=== PATIENT | female | born 1970 | race Caucasian/White ===

== ENCOUNTER 2021-05-25 16:08 | Emergency (ER) | payer MEDICAID ==
[2021-05-25] MEDS ORDERED: TORAdol 30 mg Injection IM ONE (16:30)
[2021-05-25] MEDS ORDERED: TORAdol 30 mg Injection ONE (16:32)
--- NOTE | 2021-05-25 16:35 | ERPHSYRPT ---
- History of Present Illness Source: patient Patient Subjective Stated Complaint: L knee pain Triage Nursing Assessment: pt to ED c/o L knee pain, states she tripped and twisted knee last night. now has tightness pain on lateral side of knee that radiates down to salguero and foot. rates 7/10 now. hopped on one leg to bed from and reports extreme pain with any weight bearing. Physician History: 50 yo wf cc of L knee pain after twisting it yesterday at home. Pt denies other/previous injuries. Method of Injury: twisted Occurred: yesterday Quality: constant Severity of Pain-Max: moderate Severity of Pain-Current: moderate Lower Extremities Pain: knee: left Modifying Factors: Improves With: movement Associated Symptoms: unable to bear weight Allergies/Adverse Reactions: Penicillins Allergy (Intermediate, Verified 05/25/21 16:20) Hives Home Medications: Escitalopram Oxalate [Lexapro] 5 mg PO DAILY 05/25/21 [History] Iron 18 mg PO DAILY 05/25/21 [History] Levothyroxine Sodium 150 Mcg [Synthroid 150 Mcg] 150 mcg PO DAILY 05/25/21 [History] Lisinopril/Hydrochlorothiazide [Lisinopril-Hctz 20-12.5 mg Tab] 1 each PO DAILY 05/25/21 [History] Magnesium 30 mg PO DAILY 05/25/21 [History] Meclizine HCl 25 mg [Antivert 25 mg] 25 mg PO DAILY PRN PRN 05/25/21 [History] Potassium Gluconate [Potassium] 99 mg PO DAILY 05/25/21 [History] Hx Tetanus, Diphtheria Vaccination/Date Given: Yes Hx Influenza Vaccination/Date Given: Yes Hx Pneumococcal Vaccination/Date Given: No Immunizations Up to Date: Yes Travel Risk - International Travel Have you traveled outside of the country in past 3 weeks: No - Coronavirus Screening Are you exhibiting any of the following symptoms?: No Close contact with a COVID-19 positive Pt in past 14-21 Days: No - Vaccine Status Have you recieved a Covid-19 vaccination: Yes 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[employer] - Review of Systems Constitutional: No Symptoms Eyes: No Symptoms Ears, Nose, & Throat: No Symptoms Respiratory: No Symptoms Cardiac: No Symptoms Abdominal/Gastrointestinal: No Symptoms Genitourinary Symptoms: No Symptoms Skin: No Symptoms Neurological: No Symptoms Psychological: No Symptoms Endocrine: No Symptoms Hematologic/Lymphatic: No Symptoms Immunological/Allergic: No Symptoms - Past Medical History Pertinent Past Medical History: Yes Cardiac History: Hypertension Endocrine Medical History: Hypothyroidism Psycho-Social History: Anxiety, Depression Other Medical History: iron defeciency - Past Surgical History Past Surgical History: Yes Gastrointestinal: Cholecystectomy - Social History Smoking Status: Never smoker Exposure to second hand smoke: No Drug Use: none Patient Lives Alone: No Significant Family History: no pertinent family hx - Female History Hx Now: No (hysterectomy 2001) - Nursing Vital Signs Nursing Vital Signs: Initial Vital Signs Temperature 99.0 F 05/25/21 16:13 Pulse Rate 78 05/25/21 16:13 Respiratory Rate 18 05/25/21 16:13 Blood Pressure 166/99 05/25/21 16:13 O2 Sat by Pulse Oximetry 98 05/25/21 16:13 Pain Scale Pain Intensity 6 Hypertensive - Physical Exam General Appearance: no apparent distress Eyes, Ears, Nose, Throat Exam: normal ENT inspection Neck Exam: normal inspection, non-tender Cardiovascular/Respiratory Exam: normal breath sounds, regular rate/rhythm, heart sounds normal, no respiratory distress Gastrointestinal/Abdominal Exam: non-tender, soft Back Exam: normal inspection Hips Exam: bilateral: non-tender, normal inspection, normal range of motion Legs Exam: bilateral leg: non-tender, normal inspection, normal range of motion, no evidence of injury Knees Exam: left knee: other (L knee TTP laterally>medially/No instability/Good pedial pulse, distal sensation, and capillary return) Ankle Exam: bilateral ankle: non-tender, normal inspection, normal range of motion, no evidence of injury Neuro/Tendon Exam: normal sensation, normal motor functions, normal tendon functions, responds to pain Mental Status Exam: alert, oriented x 3, cooperative Skin Exam: normal color, warm, dry, No rash SpO2 Interpretation: normal SpO2: 98 O2 Delivery: Room Air - Radiology Exams Knee X-ray Interpretation: Discussed w/ radiologist (L knee small effusion, otherwise neg) Ordered Tests: Active Orders 24 hr Category Date Time Status Splint STAT Care 05/25/21 17:01 Completed KNEE (3 VIEWS) Stat Exams 05/25/21 16:46 Completed Medication Summary Discontinued Medications Generic Name Dose Route Start Last Admin Trade Name Freq PRN Reason Stop Dose Admin Ketorolac Tromethamine 60 mg 05/25/21 16:30 05/25/21 16:35 Toradol 30 Mg Injection IM 05/25/21 16:31 60 mg STAT ONE Administration Ketorolac Tromethamine Confirm 05/25/21 16:32 Toradol 30 Mg Injection Administered 05/25/21 16:33 Dose 60 mg .ROUTE .STK-MED ONE - Progress Progress: improved Progress Note: 05/25/21 19:30 Knee immobilizer placed per nursing LLE/NVI Crutches/teaching per nursing 05/25/21 19:31 60mg IM Toradol Counseled pt/family regarding: diagnosis, need for follow-up, rad results - Departure Departure Disposition: Home Clinical Impression: Strain of knee Condition: Stable Critical Care Time: No Referrals: DOCTOR,NO FAMILY [Primary Care Provider] - [facility] - JOSE ZAYAS TECHNICAL COMMUNICATOR [NON-STAFF PHY W/O PRIVILEGES] - Instructions: Knee Sprain (DC) Additional Instructions: No weight bearing Use crutches Follow up in orthopedic clinic Toradol as needed for pain Prescriptions: Ketorolac Tromethamine [Toradol] 10 mg PO TID PRN #14 tablet PRN Reason: Pain
--- NOTE | 2021-05-25 16:54 | XRAY ---
Indication: Pain following hyperextension. Comparison: None 3 view left knee demonstrates small nonspecific effusion. No other bony, articular, or soft tissue abnormalities.
[2021-05-25 17:22] VITALS: BP 157/85; PULSE 72
[2021-05-25 19:32] VITALS: O2SAT 98
== END 2021-05-25 17:33 | disposition home or self-care (01) ==
LOC: ED 16:08
DX: S83.92XA Sprain of unspecified site of left knee, initial encounter (principal); M25.562 Pain in left knee; X50.1XXA Overexertion from prolonged static or awkward postures, initial encounter; Y93.01 Activity, walking, marching and hiking; Y92.89 Other specified places as the place of occurrence of the external cause
CPT/HCPCS: 73562; 96372; 99284; J1885; L1830

== ENCOUNTER 2021-07-03 18:12 | Emergency (ER) | payer MEDICAID, OTHER ==
[2021-07-03] MEDS ORDERED: ARZOL Silver Nitrate Applicator TP ONE (18:28)
--- NOTE | 2021-07-03 18:43 | ERPHSYRPT ---
- History of Present Illness Time Seen by Provider: 07/03/21 18:16 Source: patient Exam Limitations: no limitations Patient Subjective Stated Complaint: Patient states she as lupillo vegetables this afternoon 1300, and cut right middle finger. Wrapped guaze around finger a nd cannot get it to stop bleeding after shower this evening. Triage Nursing Assessment: R middle finger laceration, active bleeding at this time. Sensation movement WNL Physician History: 50 years old female presented in the ER after she accidentally peeled off skin right hand third digit distal interphalangeal joint area dorsally with bleeding for almost 5 hours off and on with no hemostasis despite applying pressure. Mild pain with movements. No tingling numbness in the pulp. Up-to-date with tetanus. Occurred: hours ago (5) Method of Injury: incised Quality: burning Severity of Pain-Max: mild Severity of Pain-Current: mild Extremities Pain Location: 3rd finger: right Modifying Factors: Improves With: immobilization. Worsens With: movement Associated Symptoms: none Allergies/Adverse Reactions: Penicillins Allergy (Intermediate, Verified 07/03/21 18:41) Hives Home Medications: Escitalopram Oxalate [Lexapro] 5 mg PO DAILY 05/25/21 [History] Iron 18 mg PO DAILY 05/25/21 [History] Levothyroxine Sodium 150 Mcg [Synthroid 150 Mcg] 150 mcg PO DAILY 05/25/21 [History] Lisinopril/Hydrochlorothiazide [Lisinopril-Hctz 20-12.5 mg Tab] 1 each PO DAILY 05/25/21 [History] Magnesium 30 mg PO DAILY 05/25/21 [History] Meclizine HCl 25 mg [Antivert 25 mg] 25 mg PO DAILY PRN PRN 05/25/21 [History] Potassium Gluconate [Potassium] 99 mg PO DAILY 05/25/21 [History] Hx Tetanus, Diphtheria Vaccination/Date Given: Yes (2 years) Hx Influenza Vaccination/Date Given: Yes Hx Pneumococcal Vaccination/Date Given: No Immunizations Up to Date: Yes Travel Risk - International Travel Have you traveled outside of the country in past 3 weeks: No - Coronavirus Screening Are you exhibiting any of the following symptoms?: No Close contact with a COVID-19 positive Pt in past 14-21 Days: No - Vaccine Status Have you recieved a Covid-19 vaccination: Yes 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 Pedroza for ortho - Past Surgical History Past Surgical History: Yes Gastrointestinal: Cholecystectomy - Social History Smoking Status: Never smoker Exposure to second hand smoke: No Drug Use: none Patient Lives Alone: No Significant Family History: no pertinent family hx - Female History Hx Now: No (hysterectomy) - Nursing Vital Signs Nursing Vital Signs: Initial Vital Signs Pulse Rate 84 07/03/21 18:52 Respiratory Rate 18 07/03/21 18:52 Blood Pressure 147/85 07/03/21 18:52 O2 Sat by Pulse Oximetry 97 07/03/21 18:52 Pain Scale Pain Intensity 0 - Physical Exam General Appearance: no apparent distress, alert Neck Exam: normal inspection, full range of motion Cardiovascular/Respiratory Exam: normal breath sounds, regular rate/rhythm Hand Exam: soft tissue tenderness (Right third digit distal interphalangeal joint dorsal aspect 1 cm chunk of skin missing with slow oozing. Intact range of motion of distal interphalangeal joint. Capillary refill less than 3 seconds.) Neuro/Tendon Exam: normal sensation, normal motor functions, normal tendon functions Mental Status Exam: alert, oriented x 3 Skin Exam: normal color SpO2 Interpretation: normal SpO2: 95 O2 Delivery: Room Air Ordered Tests: Medication Summary Discontinued Medications Generic Name Dose Route Start Last Admin Trade Name Felipe PRN Reason Stop Dose Admin Silver Nitrate Confirm 07/03/21 18:28 Arzol Silver Nitrate Applicator Administered 07/03/21 18:29 Dose 2 pkt TP .STK-MED ONE - Progress Progress: improved Progress Note: 07/03/21 18:41 She has a superficial skin junk gone. Cannot be stitched together. I have applied silver nitrate cauterization and bleeding is controlled. Bacitracin and splint applied to avoid rebleed. Discussed signs symptoms of worsening needing return to ER which she seems understanding. Up-to-date with tetanus. Counseled pt/family regarding: diagnosis, need for follow-up - Departure Departure Disposition: Home Clinical Impression: Finger laceration Qualifiers: Encounter type: initial encounter Finger: middle finger Damage to nail status: without damage Foreign body presence: without foreign body Laterality: right Qualified Code(s): S61.212A - Laceration without foreign body of right middle finger without damage to nail, initial encounter Condition: Stable Critical Care Time: No Referrals: VISH RANDLE DO [Primary Care Provider] - Instructions: Wound Care (DC) Additional Instructions: Take Tylenol as needed for pain. Keep it clean. Use splint for couple of days. Apply firm pressure for 5 minutes if rebleeds. Return to ER for worsening bleeding.
[2021-07-03 18:53] VITALS: BP 147/85; PULSE 84
[2021-07-05 23:35] VITALS: O2SAT 95
== END 2021-07-03 18:53 | disposition home or self-care (01) ==
LOC: ED 18:12
DX: S61.212A Laceration without foreign body of right middle finger without damage to nail, initial encounter (principal); W45.8XXA Other foreign body or object entering through skin, initial encounter; Y93.G1 Activity, food preparation and clean up; Y92.9 Unspecified place or not applicable
CPT/HCPCS: 99283; A9270-GY

== ENCOUNTER 2021-09-21 16:50 | Emergency (ER) | payer OTHER ==
[2021-09-21 17:21] LABS: Appearance CLOUDY (CLEAR); Bacteria RARE /HPF (NEGATIVE); Bilirubin NEGATIVE (NEGATIVE); Blood SMALL Ery/ul (0-5); Epithelial Cells FEW /HPF (FEW); Glucose NEGATIVE (NEGATIVE); Ketones NEGATIVE (NEGATIVE); Leukocyte Esterase LARGE (NEGATIVE); Mucus SLIGHT /HPF (NEGATIVE); Nitrite NEGATIVE (NEGATIVE); Protein,Urine Dip 30 (Negative); RBC 0-2 /HPF (0-2); Specific Gravity 1.015 (1.005-1.025); Urobilinogen NEGATIVE mg/dL (0-1); WBC 0-2 /HPF (0-5)
--- NOTE | 2021-09-21 17:27 | XRAY ---
Indication: Abdomen pain, nausea, vomiting, diarrhea 6 days. Multiple contiguous axial images obtained through the abdomen and pelvis without contrast. Comparison: None Lung bases are clear. Heart not enlarged. Noncontrasted stomach and bowel loops appear nonobstructed. Normal air-filled appendix. Previous cholecystectomy and hysterectomy. No free fluid/air. Mild fatty hepatomegaly measuring 19.5 cm. Remaining liver, pancreas, spleen, adrenal glands, kidneys, ureters, bladder, and aorta are unremarkable for noncontrast exam. Osseous structures intact with minimal/mild degenerative changes throughout the spine greatest at the lumbosacral junction. Impression: 1. Mild fatty hepatomegaly. 2. Remaining CT abdomen/pelvis without contrast exam is negative.
[2021-09-21 18:25] LABS: BASOPHIL % 0.4 % (0.0-0.4); Basophil (Absolute #) 0.02 (0-0.4); Eosinophil % 1.9 % (0.00-5.0); Hematocrit 41.4 % (35-47); Hemoglobin 13.4 gm/dl (12.0-16.0); Lymphocyte (Absolute #) 1.46 (1.0-4.6); Lymphocytes % 27.1 % (24.0-44.0); Mean Corpuscular Hemoglobin 29.5 pg (26-32); Mean Corpuscular Hgb Concent. 32.4 g/dl (32-36); Mean Platelet Volume 11.6 fl (7.5-11.0); Monocytes % 9.3 % (0.0-12.0); Neutrophil % 61.3 % (36.0-66.0); Platelet Count 185 K/mm3 (150-450); Red Blood Count 4.55 M/mm3 (4.1-5.4); Red Cell Distribution Width 12.2 % (11.5-14.0); White Blood Count 5.4 K/mm3 (4.0-10.5)
[2021-09-21 18:35] LABS: ALBUMIN 4.2 g/dL (3.5-5.0); ALKALINE PHOSPHATASE 70 U/L (38-126); AMYLASE 44 U/L (30-110); ANION GAP 11.8 MEQ/L (5-15); BLOOD UREA NITROGEN 16 mg/dL (7-17); CHLORIDE 99 mmol/L (98-107); Calcium 9.5 mg/dL (8.4-10.2); Carbon Dioxide 30 mmol/L (22-30); Creatinine 1 0.87 mg/dL (0.52-1.04); EST GLOMERULAR FILTRATION RATE > 60.0 ML/MIN; Glucose 120 mg/dL (74-106); LIPASE 79 U/L (23-300); Potassium 3.6 mmol/L (3.5-5.1); SGOT/AST 23 U/L (14-36); SGPT/ALT 21 U/L (0-35); SODIUM 137 mmol/L (137-145); Total Protein 6.9 g/dL (6.3-8.2)
--- NOTE | 2021-09-21 18:35 | ERPHSYRPT ---
- History of Present Illness Time Seen by Provider: 09/21/21 17:20 Historian: patient Exam Limitations: no limitations Patient Subjective Stated Complaint: Pt states "I had misiscus surgery on my left knee on sunday and for the past 3 days I have been vomiting and unable to keep anything down. It also aranda when I urinate." Triage Nursing Assessment: Pt presented alert and oriented X3, skin pwd Pt ambulates with a limp. Pt has two bandaids on her left knee, no swelling or deformity noted. no fever, no apparent respiratory distress. Physician History: This is a 51-year-old obese white female who underwent a left knee meniscal repair 5 days ago. Approximately 3 days ago patient was having vomiting symptoms and diarrheal stools. She thought maybe it was the medication of meloxicam and tramadol that was given to her. She therefore stopped those medications. Her symptoms of vomiting and diarrhea persisted. She also has some dysuria. Patient has a history of hypothyroidism and hypertension. She also has a history of anxiety and depression. She also has iron deficiency. Patient denies chest pain. She denies abdominal pain. She denies shortness of breath. Timing/Duration: day(s) (3) Quality: cramping, other (Dysuria) Modifying Factors: Improves With: vomiting, other (Vomiting and diarrhea) Associated Symptoms: diarrhea, loss of appetite, nausea, vomiting, other (Dysuria) Previous symptoms: no prior history Allergies/Adverse Reactions: Penicillins Allergy (Intermediate, Verified 07/03/21 18:41) Hives Home Medications: Iron 18 mg PO DAILY 05/25/21 [History] Levothyroxine Sodium 150 Mcg [Synthroid 150 Mcg] 150 mcg PO DAILY 05/25/21 [History] Lisinopril/Hydrochlorothiazide [Lisinopril-Hctz 20-12.5 mg Tab] 1 each PO DAILY 05/25/21 [History] Magnesium 30 mg PO DAILY 05/25/21 [History] Meclizine HCl 25 mg [Antivert 25 mg] 25 mg PO DAILY PRN PRN 05/25/21 [History] Potassium Gluconate [Potassium] 99 mg PO DAILY 05/25/21 [History] Hx Tetanus, Diphtheria Vaccination/Date Given: Yes Hx Influenza Vaccination/Date Given: Yes Hx Pneumococcal Vaccination/Date Given: No Immunizations Up to Date: Yes Travel Risk - International Travel Have you traveled outside of the country in past 3 weeks: No - Coronavirus Screening Are you exhibiting any of the following symptoms?: Yes Symptoms: Vomiting/Diarrhea Close contact with a COVID-19 positive Pt in past 14-21 Days: No - Vaccine Status Have you recieved a Covid-19 vaccination: Yes 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 - Review of Systems Constitutional: Weakness Eyes: No Symptoms Ears, Nose, & Throat: No Symptoms Respiratory: No Symptoms Cardiac: No Symptoms Abdominal/Gastrointestinal: Abdominal Pain (Mild cramping generalized), Nausea, Vomiting, Diarrhea, Appetite Changes Genitourinary Symptoms: Dysuria Musculoskeletal: No Symptoms Skin: No Symptoms Neurological: No Symptoms Psychological: No Symptoms Endocrine: No Symptoms Hematologic/Lymphatic: No Symptoms Immunological/Allergic: No Symptoms All Other Systems: Reviewed and Negative - Past Medical History Pertinent Past Medical History: Yes Neurological History: Migraines Cardiac History: Hypertension Respiratory History: Other Endocrine Medical History: Hypothyroidism Musculoskeletal History: Osteoarthritis Psycho-Social History: Anxiety, Depression Other Medical History: PT HAS SHOOTING PAIN INTO THE L LATERAL CALF, SHE NOTES PAIN BEHIND THE KNEE. DENIES ANY DROP FOOT. SOB ON EXERTION. - Past Surgical History Past Surgical History: Yes Gastrointestinal: Cholecystectomy - Social History Smoking Status: Never smoker Exposure to second hand smoke: Yes Drug Use: none Patient Lives Alone: No Significant Family History: no pertinent family hx - Female History Hx Last Menstrual Period: 2001 - Nursing Vital Signs Nursing Vital Signs: Initial Vital Signs Temperature 97.6 F 09/21/21 17:00 Pulse Rate 99 H 09/21/21 17:00 Respiratory Rate 20 09/21/21 17:00 Blood Pressure 146/104 09/21/21 17:00 O2 Sat by Pulse Oximetry 97 09/21/21 17:00 Pain Scale Pain Intensity 4 - Physical Exam General Appearance: mild distress, alert, anxiety, obese Eye Exam: PERRL/EOMI, eyes nml inspection Ears, Nose, Throat Exam: normal ENT inspection, moist mucous membranes Neck Exam: normal inspection, non-tender, supple, full range of motion Respiratory Exam: normal breath sounds, lungs clear, airway intact, No chest tenderness, No respiratory distress Cardiovascular Exam: regular rate/rhythm, normal heart sounds, normal peripheral pulses Gastrointestinal/Abdomen Exam: soft, normal bowel sounds, tenderness (Mild d iffuse with palpation), No rebound Pelvic Exam: not done Rectal Exam: not done Back Exam: normal inspection, normal range of motion, No CVA tenderness, No vertebral tenderness Extremity Exam: normal range of motion, pelvis stable, other (Postoperative changes left anterior knee. No evidence of infection. Incision lines are clean dry and intact.) Neurologic Exam: alert, oriented x 3, cooperative, chronic disease manager II-XII nml as tested, normal mood/affect, nml cerebellar function, nml station & gait, sensation nml Skin Exam: normal color, warm, dry Lymphatic Exam: No adenopathy SpO2 Interpretation: normal SpO2: 97 O2 Delivery: Room Air - Course Nursing assessment & vital signs reviewed: Yes Ordered Tests: Active Orders 24 hr Category Date Time Status IV Insertion STAT Care 09/21/21 17:00 Active ABDOMEN AND PELVIS W/0 CONTRAS [CT] Stat Exams 09/21/21 17:01 Completed AMYLASE Stat Lab 09/21/21 18:17 Completed CBC W DIFF Stat Lab 09/21/21 18:17 Completed CMP Stat Lab 09/21/21 18:17 Completed CULTURE,URINE Stat Lab 09/21/21 17:00 Received LIPASE Stat Lab 09/21/21 18:17 Completed Lactic Acid Stat Lab 09/21/21 18:06 Completed UA W/RFX UR CULTURE Stat Lab 09/21/21 17:00 Completed Medication Summary Generic Name Dose Route Start Last Admin Trade Name Freq PRN Reason Stop Dose Admin Levofloxacin/Dextrose 500 mg in 100 mls @ 100 mls/hr 09/21/21 18:36 09/21/21 18:47 Levofloxacin 500mg/100ml D5w IV 09/21/21 19:35 100 mls/hr STAT STA 100 mls/hr Administration Metronidazole 500 mg 09/21/21 19:11 Metronidazole 500 Mg Tablet PO 09/21/21 19:12 STAT ONE Discontinued Medications Generic Name Dose Route Start Last Admin Trade Name Freq PRN Reason Stop Dose Admin Sodium Chloride 1,000 mls @ 999 mls/hr 09/21/21 17:00 09/21/21 18:47 Sodium Chloride 0.9% 1000 Ml IV 09/21/21 18:00 999 mls/hr .Q1H1M STA Administration Sodium Chloride Confirm 09/21/21 18:46 Sodium Chloride 0.9% 1000 Ml Administered 09/21/21 18:47 Dose 1,000 mls @ ud .ROUTE .STK-MED ONE Levofloxacin/Dextrose Confirm 09/21/21 18:46 Levofloxacin 500mg/100ml D5w Administered 09/21/21 18:47 Dose 500 mg in 100 mls @ ud IV .STK-MED ONE Ondansetron HCl 4 mg 09/21/21 17:00 09/21/21 18:47 Ondansetron Hcl 4 Mg/2 Ml Vial IV 09/21/21 17:01 4 mg STAT ONE Administration Ondansetron HCl Confirm 09/21/21 18:46 Ondansetron Hcl 4 Mg/2 Ml Vial Administered 09/21/21 18:47 Dose 4 mg .ROUTE .STK-MED ONE Lab/Rad Data: Laboratory Result Diagrams 09/21/21 18:17 09/21/21 18:17 Laboratory Results 09/21/21 09/21/21 09/21/21 Range/Units 18:17 18:17 18:06 WBC 5.4 (4.0-10.5) K/mm3 RBC 4.55 (4.1-5.4) M/mm3 Hgb 13.4 (12.0-16.0) gm/dl Hct 41.4 (35-47) % MCV 91.0 (78-100) fl MCH 29.5 (26-32) pg MCHC 32.4 (32-36) g/dl RDW 12.2 (11.5-14.0) % Plt Count 185 (150-450) K/mm3 MPV 11.6 H (7.5-11.0) fl Gran % 61.3 (36.0-66.0) % Eos # (Auto) 0.10 (0-0.5) Absolute Lymphs (auto) 1.46 (1.0-4.6) Absolute Monos (auto) 0.50 (0.0-1.3) Lymphocytes % 27.1 (24.0-44.0) % Monocytes % 9.3 (0.0-12.0) % Eosinophils % 1.9 (0.00-5.0) % Basophils % 0.4 (0.0-0.4) % Absolute Granulocytes 3.30 (1.4-6.9) Basophils # 0.02 (0-0.4) Sodium 137 (137-145) mmol/L Potassium 3.6 (3.5-5.1) mmol/L Chloride 99 (98-107) mmol/L Carbon Dioxide 30 (22-30) mmol/L Anion Gap 11.8 (5-15) MEQ/L BUN 16 (7-17) mg/dL Creatinine 0.87 (0.52-1.04) mg/dL Estimated GFR > 60.0 ML/MIN Glucose 120 H (74-106) mg/dL Lactic Acid 1.2 (0.4-2.0) Calcium 9.5 (8.4-10.2) mg/dL Total Bilirubin 0.60 (0.2-1.3) mg/dL AST 23 (14-36) U/L ALT 21 (0-35) U/L Alkaline Phosphatase 70 (38-126) U/L Serum Total Protein 6.9 (6.3-8.2) g/dL Albumin 4.2 (3.5-5.0) g/dL Amylase 44 (30-110) U/L Lipase 79 (23-300) U/L Urine Color (YELLOW) Urine Appearance (CLEAR) Urine pH (5-6) Ur Specific [place] (1.005-1.025) Urine Protein (Negative) Urine Ketones (NEGATIVE) Urine Blood (0-5) Raghavendra/ul Urine Nitrite (NEGATIVE) Urine Bilirubin (NEGATIVE) Urine Urobilinogen (0-1) mg/dL Ur Leukocyte Esterase (NEGATIVE) Urine WBC (Auto) (0-5) /HPF Urine RBC (Auto) (0-2) /HPF U Epithel Cells (Auto) (FEW) /HPF Urine Bacteria (Auto) (NEGATIVE) /HPF Urine Mucus (Auto) (NEGATIVE) /HPF Urine Culture Reflexed (NO) Urine Glucose (NEGATIVE) mg/dL 09/21/21 Range/Units 17:00 WBC (4.0-10.5) K/mm3 RBC (4.1-5.4) M/mm3 Hgb (12.0-16.0) gm/dl Hct (35-47) % MCV (78-100) fl MCH (26-32) pg MCHC (32-36) g/dl RDW (11.5-14.0) % Plt Count (150-450) K/mm3 MPV (7.5-11.0) fl Gran % (36.0-66.0) % Eos # (Auto) (0-0.5) Absolute Lymphs (auto) (1.0-4.6) Absolute Monos (auto) (0.0-1.3) Lymphocytes % (24.0-44.0) % Monocytes % (0.0-12.0) % Eosinophils % (0.00-5.0) % Basophils % (0.0-0.4) % Absolute Granulocytes (1.4-6.9) Basophils # (0-0.4) Sodium (137-145) mmol/L Potassium (3.5-5.1) mmol/L Chloride (98-107) mmol/L Carbon Dioxide (22-30) mmol/L Anion Gap (5-15) MEQ/L BUN (7-17) mg/dL Creatinine (0.52-1.04) mg/dL Estimated GFR ML/MIN Glucose (74-106) mg/dL Lactic Acid (0.4-2.0) Calcium (8.4-10.2) mg/dL Total Bilirubin (0.2-1.3) mg/dL AST (14-36) U/L ALT (0-35) U/L Alkaline Phosphatase (38-126) U/L Serum Total Protein (6.3-8.2) g/dL Albumin (3.5-5.0) g/dL Amylase (30-110) U/L Lipase (23-300) U/L Urine Color YELLOW (YELLOW) Urine Appearance CLOUDY (CLEAR) Urine pH 7.0 (5-6) Ur Specific [place] 1.015 (1.005-1.025) Urine Protein 30 (Negative) Urine Ketones NEGATIVE (NEGATIVE) Urine Blood SMALL (0-5) Raghavendra/ul Urine Nitrite NEGATIVE (NEGATIVE) Urine Bilirubin NEGATIVE (NEGATIVE) Urine Urobilinogen NEGATIVE (0-1) mg/dL Ur Leukocyte Esterase LARGE (NEGATIVE) Urine WBC (Auto) 0-2 (0-5) /HPF Urine RBC (Auto) 0-2 (0-2) /HPF U Epithel Cells (Auto) FEW (FEW) /HPF Urine Bacteria (Auto) RARE (NEGATIVE) /HPF Urine Mucus (Auto) SLIGHT (NEGATIVE) /HPF Urine Culture Reflexed YES (NO) Urine Glucose NEGATIVE (NEGATIVE) mg/dL - Progress Progress: improved, pain not gone completely, re-examined Progress Note: 09/21/21 19:12 CAT scan of the abdomen pelvis shows no acute intra-abdominal or intrapelvic abnormality. Counseled pt/family regarding: lab results, diagnosis, need for follow-up, rad results - Departure Departure Disposition: Home Clinical Impression: UTI (urinary tract infection), Diarrhea Condition: Stable Critical Care Time: No Referrals: NICOLA DERAS [Primary Care Provider] - Additional Instructions: Drink plenty of fluids. Take your antibiotics as prescribed. Follow-up with your primary care physician and your orthopedic surgeon for further management. Prescriptions: Ciprofloxacin [Cipro 500 MG] 500 mg PO BID #14 tablet Metronidazole 500 mg [Flagyl 500 MG] 500 mg PO TID #21 tablet
[2021-09-21 18:44] VITALS: PULSE 86
[2021-09-21] MEDS ORDERED: Sodium Chloride 0.9% 1000 ML 1,000 ML ONE (18:46)
[2021-09-21] MEDS ORDERED: Zofran 4 MG/2 ML VIAL ONE (18:46)
[2021-09-21] MEDS ORDERED: Levofloxacin 500MG/100ML D5W 500 MG/100 ML BAG IV ONE (18:46)
[2021-09-21] MEDS: Levofloxacin 500MG/100ML D5W 500 MG/100 ML BAG IV STA (18:47)
[2021-09-21] MEDS: Zofran 4 MG/2 ML VIAL IV ONE (18:47)
[2021-09-21] MEDS: Sodium Chloride 0.9% 1000 ML 1,000 ML IV STA (18:47)
[2021-09-21 19:11] VITALS: BP 144/81
[2021-09-21 19:15] VITALS: O2SAT 97
[2021-09-21] MEDS: Flagyl 500 MG PO ONE (19:21)
[2021-09-21] MEDS ORDERED: Flagyl 500 MG ONE (19:21)
== END 2021-09-21 19:32 | disposition home or self-care (01) ==
LOC: ED 16:50
DX: N39.0 Urinary tract infection, site not specified (principal); R19.7 Diarrhea, unspecified
CPT/HCPCS: 36000; 36415; 74176; 80053; 81001; 82150; 83605; 83690; 85025; 87086; 96365; 96374; 99284; J1956; J2405; A9270-GY

== ENCOUNTER 2022-01-04 11:39 | Emergency (ER) | payer OTHER ==
--- NOTE | 2022-01-04 12:01 | ERPHSYRPT ---
- History of Present Illness Time Seen by Provider: 01/04/22 11:45 Historian: patient Exam Limitations: no limitations Patient Subjective Stated Complaint: Pt states " I was at work and I got a headache and my chest got really heavy and it went up into my neck. My chest has been hurting on and off for the past couple of days." Triage Nursing Assessment: Pt presented alert and oriented X 3, skin pwd. Pt ambulates with an upright steady gait. PT holding her chest. and squinting. Physician History: Patient is a 51-year-old female presents to emergency department for evaluation of chest pressure. Patient states she was at work developed a slight headache and felt pressure into her chest. Pressure radiates to her neck. No associated nausea vomiting or diaphoresis. No trauma. No fever. No diarrhea. No rash. Symptoms are constant. Symptoms are moderate in intensity. No specific worsening improving factors. Patient voices no other complaints concerns at this time. . Timing/Duration: today Activities at Onset: none Quality: pressure Location: substernal Chest Pain Radiation: neck Severity of Pain-Max: moderate Severity of Pain-Current: mild Modifying Factors: Improves With: nothing Associated Symptoms: denies symptoms Prior Chest Pain/Cardiac Workup: no prior chest pain Nitro Today/Relief: no nitro taken today Aspirin Treatment Today: no aspirin today Allergies/Adverse Reactions: Penicillins Allergy (Intermediate, Verified 07/03/21 18:41) Hives Home Medications: Iron 18 mg PO DAILY 05/25/21 [History] Levothyroxine Sodium 150 Mcg [Synthroid 150 Mcg] 150 mcg PO DAILY 05/25/21 [History] Lisinopril/Hydrochlorothiazide [Lisinopril-Hctz 20-12.5 mg Tab] 1 each PO DAILY 05/25/21 [History] Magnesium 30 mg PO DAILY 05/25/21 [History] Meclizine HCl 25 mg [Antivert 25 mg] 25 mg PO DAILY PRN PRN 05/25/21 [History] Potassium Gluconate [Potassium] 99 mg PO DAILY 05/25/21 [History] Vortioxetine Hydrobromide [Trintellix] 5 mg PO DAILY 01/04/22 [History] atenoloL [Atenolol] 25 mg PO DAILY 01/04/22 [History] Hx Tetanus, Diphtheria Vaccination/Date Given: Yes Hx Influenza Vaccination/Date Given: Yes Hx Pneumococcal Vaccination/Date Given: No Immunizations Up to Date: Yes Travel Risk - International Travel Have you traveled outside of the country in past 3 weeks: No - Coronavirus Screening Are you exhibiting any of the following symptoms?: Yes Symptoms: Shortness of Breath, Headaches/Body Aches/Fatigue Close contact with a COVID-19 positive Pt in past 14-21 Days: No - Vaccine Status Have you recieved a Covid-19 vaccination: Yes 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[employer] - Review of Systems Constitutional: No Symptoms, No Fever, No Chills Eyes: No Symptoms Ears, Nose, & Throat: No Symptoms Respiratory: No Symptoms, No Cough, No Dyspnea Cardiac: No Symptoms, No Chest Pain, No Edema, No Syncope Abdominal/Gastrointestinal: No Symptoms, No Abdominal Pain, No Nausea, No Vomiting, No Diarrhea Genitourinary Symptoms: No Symptoms, No Dysuria Musculoskeletal: No Symptoms, No Back Pain, No Neck Pain Skin: No Symptoms, No Rash Neurological: No Symptoms, No Dizziness, No Focal Weakness, No Sensory Changes Psychological: No Symptoms Endocrine: No Symptoms Hematologic/Lymphatic: No Symptoms Immunological/Allergic: No Symptoms All Other Systems: Reviewed and Negative - Past Medical History Pertinent Past Medical History: Yes Neurological History: Migraines Cardiac History: Hypertension Respiratory History: Other Endocrine Medical History: Hypothyroidism Musculoskeletal History: Osteoarthritis Psycho-Social History: Anxiety, Depression Other Medical History: PT HAS SHOOTING PAIN INTO THE L LATERAL CALF, SHE NOTES PAIN BEHIND THE KNEE. DENIES ANY DROP FOOT. SOB ON EXERTION. - Past Surgical History Past Surgical History: Yes Gastrointestinal: Cholecystectomy - Social History Smoking Status: Never smoker Exposure to second hand smoke: Yes Drug Use: none Patient Lives Alone: No Significant Family History: no pertinent family hx - Female History Hx Now: No - Nursing Vital Signs Nursing Vital Signs: Initial Vital Signs Temperature 98.2 F 01/04/22 11:39 Pulse Rate 82 01/04/22 11:39 Respiratory Rate 22 01/04/22 11:39 Blood Pressure 211/105 01/04/22 11:39 O2 Sat by Pulse Oximetry 98 01/04/22 11:39 Pain Scale Pain Intensity 5 - Physical Exam General Appearance: no apparent distress, alert Eye Exam: PERRL/EOMI, eyes nml inspection Ears, Nose, Throat Exam: normal ENT inspection, TMs normal, pharynx normal, moist mucous membranes Neck Exam: normal inspection, non-tender, supple, full range of motion Respiratory Exam: normal breath sounds, lungs clear, airway intact, No resp iratory distress Cardiovascular Exam: regular rate/rhythm, normal heart sounds, normal peripheral pulses Gastrointestinal/Abdomen Exam: soft, No tenderness, No mass Back Exam: normal inspection, No CVA tenderness, No vertebral tenderness Extremity Exam: normal inspection, normal range of motion Neurologic Exam: alert, oriented x 3, cooperative, normal mood/affect, sensation nml, No motor deficits Skin Exam: normal color, warm, dry Lymphatic Exam: No adenopathy SpO2 Interpretation: normal SpO2: 98 O2 Delivery: Room Air - Course Nursing assessment & vital signs reviewed: Yes EKG Interpreted by Me: RATE ([id number]), Sinus Rhythm, NORMAL AXIS, NORMAL INTERVALS - Radiology Exams Chest X-ray Interpretation: Teleradiologist Report (Portable chest demonstrates normal heart and lungs. Bony thorax intact.) Ordered Tests: Active Orders 24 hr Category Date Time Status Furniture Designer STAT Care 01/04/22 11:53 Active EKG-ER Only STAT Care 01/04/22 11:52 Active IV Insertion STAT Care 01/04/22 11:52 Active Pulse Oximetry (ED) STAT Care 01/04/22 11:52 Active CHEST 1 VIEW (PORTABLE) Stat Exams 01/04/22 11:53 Completed BLOOD CULTURE Stat Lab 01/04/22 12:12 Received CBC W DIFF Stat Lab 01/04/22 11:50 Completed CMP Stat Lab 01/04/22 11:50 Completed NT PRO BNP Stat Lab 01/04/22 11:50 Completed TROPONIN Q3H Lab 01/04/22 11:50 Completed TROPONIN Q3H Lab 01/04/22 15:10 Completed TROPONIN Q3H Lab 01/04/22 18:00 Ordered TROPONIN Q3H Lab 01/04/22 21:00 Ordered TROPONIN Q3H Lab 01/05/22 00:00 Ordered Lab/Rad Data: Laboratory Result Diagrams 01/04/22 11:50 01/04/22 11:50 Laboratory Results 01/04/22 01/04/22 01/04/22 Range/Units 15:10 11:50 11:50 WBC (4.0-10.5) K/mm3 RBC (4.1-5.4) M/mm3 Hgb (12.0-16.0) gm/dl Hct (35-47) % MCV (78-100) fl MCH (26-32) pg MCHC (32-36) g/dl RDW (11.5-14.0) % Plt Count (150-450) K/mm3 MPV (7.5-11.0) fl Gran % (36.0-66.0) % Eos # (Auto) (0-0.5) Absolute Lymphs (auto) (1.0-4.6) Absolute Monos (auto) (0.0-1.3) Lymphocytes % (24.0-44.0) % Monocytes % (0.0-12.0) % Eosinophils % (0.00-5.0) % Basophils % (0.0-0.4) % Absolute Granulocytes (1.4-6.9) Basophils # (0-0.4) Sodium 140 (137-145) mmol/L Potassium 3.5 (3.5-5.1) mmol/L Chloride 105 (98-107) mmol/L Carbon Dioxide 27 (22-30) mmol/L Anion Gap 11.3 (5-15) MEQ/L BUN 19 H (7-17) mg/dL Creatinine 0.77 (0.52-1.04) mg/dL Estimated GFR > 60.0 ML/MIN Glucose 109 H (74-106) mg/dL Calcium 9.1 (8.4-10.2) mg/dL Total Bilirubin 0.50 (0.2-1.3) mg/dL AST 22 (14-36) U/L ALT 18 (0-35) U/L Alkaline Phosphatase 73 (38-126) U/L Troponin I < 0.012 < 0.012 (0.000-0.034) ng/mL NT-Pro-B Natriuret Pep 164 (0-900) pg/mL Serum Total Protein 7.1 (6.3-8.2) g/dL Albumin 4.5 (3.5-5.0) g/dL 01/04/22 Range/Units 11:50 WBC 4.5 (4.0-10.5) K/mm3 RBC 4.46 (4.1-5.4) M/mm3 Hgb 13.2 (12.0-16.0) gm/dl Hct 40.2 (35-47) % MCV 90.1 (78-100) fl MCH 29.6 (26-32) pg MCHC 32.8 (32-36) g/dl RDW 13.1 (11.5-14.0) % Plt Count 161 (150-450) K/mm3 MPV 12.4 H (7.5-11.0) fl Gran % 64.1 (36.0-66.0) % Eos # (Auto) 0.06 (0-0.5) Absolute Lymphs (auto) 1.31 (1.0-4.6) Absolute Monos (auto) 0.25 (0.0-1.3) Lymphocytes % 28.9 (24.0-44.0) % Monocytes % 5.5 (0.0-12.0) % Eosinophils % 1.3 (0.00-5.0) % Basophils % 0.2 (0.0-0.4) % Absolute Granulocytes 2.91 (1.4-6.9) Basophils # 0.01 (0-0.4) Sodium (137-145) mmol/L Potassium (3.5-5.1) mmol/L Chloride (98-107) mmol/L Carbon Dioxide (22-30) mmol/L Anion Gap (5-15) MEQ/L BUN (7-17) mg/dL Creatinine (0.52-1.04) mg/dL Estimated GFR ML/MIN Glucose (74-106) mg/dL Calcium (8.4-10.2) mg/dL Total Bilirubin (0.2-1.3) mg/dL AST (14-36) U/L ALT (0-35) U/L Alkaline Phosphatase (38-126) U/L Troponin I (0.000-0.034) ng/mL NT-Pro-B Natriuret Pep (0-900) pg/mL Serum Total Protein (6.3-8.2) g/dL Albumin (3.5-5.0) g/dL - Progress Progress: improved Air Movement: good Progress Note: Patient reassessed. She is well. Patient asymptomatic. Work-up negative. Troponin negative x2. EKG normal sinus rhythm. Vital stable. Heart score: 2 risk of M ASHER is 0.9 to 1.7%. History: 0 EK Age: 1 Risk factors: 1 Troponin 0 01/04/22 16:12 Blood Culture(s) Obtained: No Antibiotics given: No Counseled pt/family regarding: lab results, diagnosis, need for follow-up, rad results - Departure Departure Disposition: Home Clinical Impression: Chest pressure Condition: Stable Critical Care Time: No Referrals: NICOLA DERAS [Primary Care Provider] - Follow up/PCP as directed Additional Instructions: Discharge/Care Plan SIMBA JONAS was seen on 01/04/22 in the Emergency Room. The patient was counseled regarding Diagnosis,Lab results, Imaging studies, need for follow up and when to return to the Emergency Room. Prescriptions given: Discharge Note I have spoken with the patient and/or caregivers. I have explained the patient's condition, diagnosis and treatment plan based on the information available to me at this time. I have answered the patient's and/or caregiver's questions and addressed any concerns. The patient and/or caregivers have as good understanding of the patient's diagnosis, condition and treatment plan as can be expected at this point. The vital signs have been stable. The patient's condition is stable and appropriate for discharge from the emergency department. The patient will pursue further outpatient evaluation with the primary care physician or other designated or consulting physician as outlined in the dis charge instructions. The patient and/or caregivers are agreeable to this plan of care and follow-up instructions have been explained in detail. The patient and/or caregivers have received these instruction. The patient/and or caregivers are aware that any significant change in condition or worsening of symptoms should prompt an immediate return to this or the closest emergency department or call 911.
--- NOTE | 2022-01-04 12:26 | XRAY ---
Indication: Short of breath. Comparison: None Portable chest demonstrates normal heart and lungs. Bony thorax intact.
[2022-01-04 12:39] LABS: Absolute Neutrophil Ct (ANC) 2.91 (1.4-6.9); Basophil (Absolute #) 0.01 (0-0.4); Eosinophil % 1.3 % (0.00-5.0); Eosinophil (Absolute #) 0.06 (0-0.5); Hematocrit 40.2 % (35-47); Hemoglobin 13.2 gm/dl (12.0-16.0); Lymphocyte (Absolute #) 1.31 (1.0-4.6); Lymphocytes % 28.9 % (24.0-44.0); Mean Cell Volume 90.1 fl (78-100); Mean Corpuscular Hemoglobin 29.6 pg (26-32); Mean Corpuscular Hgb Concent. 32.8 g/dl (32-36); Mean Platelet Volume 12.4 fl (7.5-11.0); Monocyte (Absolute #) 0.25 (0.0-1.3); Monocytes % 5.5 % (0.0-12.0); Neutrophil % 64.1 % (36.0-66.0); Platelet Count 161 K/mm3 (150-450); Red Blood Count 4.46 M/mm3 (4.1-5.4); Red Cell Distribution Width 13.1 % (11.5-14.0); White Blood Count 4.5 K/mm3 (4.0-10.5)
[2022-01-04 12:51] LABS: ALBUMIN 4.5 g/dL (3.5-5.0); ALKALINE PHOSPHATASE 73 U/L (38-126); ANION GAP 11.3 MEQ/L (5-15); BLOOD UREA NITROGEN 19 mg/dL (7-17); CHLORIDE 105 mmol/L (98-107); Calcium 9.1 mg/dL (8.4-10.2); Carbon Dioxide 27 mmol/L (22-30); Creatinine 1 0.77 mg/dL (0.52-1.04); EST GLOMERULAR FILTRATION RATE > 60.0 ML/MIN; Glucose 109 mg/dL (74-106); NT PRO BNP 164 pg/mL (0-900); Potassium 3.5 mmol/L (3.5-5.1); SGOT/AST 22 U/L (14-36); SGPT/ALT 18 U/L (0-35); SODIUM 140 mmol/L (137-145); Total Protein 7.1 g/dL (6.3-8.2)
[2022-01-04 16:17] VITALS: O2SAT 98
[2022-01-04 17:05] VITALS: BP 141/86; PULSE 67
== END 2022-01-04 17:08 | disposition home or self-care (01) ==
LOC: ED 11:39
DX: R07.89 Other chest pain (principal); R51.9 Headache, unspecified; M79.605 Pain in left leg; I10 Essential (primary) hypertension; Z79.899 Other long term (current) drug therapy
CPT/HCPCS: 36000; 36415; 71045; 80053; 83880; 84484; 85025; 85379; 87040; 93005; 93041; 94760; 99284

== ENCOUNTER 2022-05-21 14:24 | Emergency (ER) | payer OTHER | END 2022-05-21 15:34 | disposition left against medical advice (07) | LOC: ED 14:24 | DX: Z53.21 Procedure and treatment not carried out due to patient leaving prior to being seen by health care provider (principal) ==

== ENCOUNTER 2023-04-13 11:32 | Emergency (ER) | payer OTHER ==
--- NOTE | 2023-04-13 11:33 | ERPHSYRPT ---
- History of Present Illness Time Seen by Provider: 04/13/23 11:33 Historian: patient Exam Limitations: no limitations Physician History: This is a 52-year-old white female patient of Dr. Meredith Deras who has had upper respiratory infections in the last 3 to 4 weeks treated with antibiotics. 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 In the last 4 days she has had gastrointestinal complaints of nausea vomiting and diarrhea. She was placed on doxycycline 4 days ago. She continues to have the nausea vomiting and body aches. She is unable to hold anything down per her report. Patient has had a cholecystectomy in the past. Patient also has a history of depression, hypertension and hypothyroidism. Patient denies shortness of breath and she denies chest pain. Timing/Duration: day(s) (4), worse Activities at Onset: none Quality: aching Abdominal Pain Onset Location: generalized abdomen Severity of Pain-Max: mild Severity of Pain-Current: mild Modifying Factors: Improves With: vomiting Associated Symptoms: diarrhea, loss of appetite, nausea, vomiting, weakness, No chest pain, No shortness of breath Previous symptoms: recently treated Allergies/Adverse Reactions: Penicillins Allergy (Intermediate, Verified 04/13/23 11:40) Hives Home Medications: Levothyroxine Sodium 150 Mcg [Synthroid 150 Mcg] 175 mcg PO DAILY 05/25/21 [History] Meclizine HCl 25 mg [Antivert 25 mg] 25 mg PO DAILY PRN PRN 05/25/21 [History] Celecoxib 100 mg [celeBREX 100 MG] 200 mg PO DAILY 04/13/23 [History] Desloratadine 1 tab PO DAILY 04/13/23 [History] Gabapentin 300 mg PO DAILY 04/13/23 [History] Simvastatin 20Mg [Zocor 20Mg] 20 mg PO HS 04/13/23 [History] Hx Tetanus, Diphtheria Vaccination/Date Given: Yes Hx Influenza Vaccination/Date Given: Yes Hx Pneumococcal Vaccination/Date Given: No Travel Risk - International Travel Have you traveled outside of the country in past 3 weeks: No - Coronavirus Screening Are you exhibiting any of the following symptoms?: Yes Symptoms: Vomiting/Diarrhea, Headaches/Body Aches/Fatigue Close contact with a COVID-19 positive Pt in past 14-21 Days: No - Vaccine Status Have you recieved a Covid-19 vaccination: Yes 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 - Review of Systems Constitutional: Weakness Eyes: No Symptoms Ears, Nose, & Throat: No Symptoms Respiratory: No Symptoms Cardiac: No Symptoms Abdominal/Gastrointestinal: Abdominal Pain, Nausea, Vomiting, Diarrhea, Appetite Changes Genitourinary Symptoms: No Symptoms Musculoskeletal: No Symptoms Skin: No Symptoms Neurological: No Symptoms Psychological: No Symptoms Endocrine: No Symptoms Hematologic/Lymphatic: No Symptoms Immunological/Allergic: No Symptoms All Other Systems: Reviewed and Negative - Past Medical History Pertinent Past Medical History: Yes Neurological History: Migraines Cardiac History: Hypertension Respiratory History: No Pertinent History Endocrine Medical History: Hypothyroidism Musculoskeletal History: Osteoarthritis Psycho-Social History: Anxiety, Depression Other Medical History: L KNEE SCOPE - Past Surgical History Past Surgical History: Yes Gastrointestinal: Cholecystectomy - Social History Smoking Status: Never smoker Exposure to second hand smoke: Yes Drug Use: none Patient Lives Alone: No Significant Family History: no pertinent family hx - Nursing Vital Signs Nursing Vital Signs: Initial Vital Signs Temperature 97.3 F 04/13/23 11:40 Pulse Rate 78 04/13/23 11:40 Respiratory Rate 15 04/13/23 11:40 Blood Pressure 122/82 04/13/23 11:40 O2 Sat by Pulse Oximetry 96 04/13/23 11:40 Pain Scale Pain Intensity 2 - Physical Exam General Appearance: no apparent distress, alert, anxiety Eye Exam: PERRL/EOMI, eyes nml inspection Ears, Nose, Throat Exam: dry mucous membranes Neck Exam: normal inspection, non-tender, supple, full range of motion Respiratory Exam: normal breath sounds, lungs clear, airway intact, No chest tenderness, No respiratory distress Cardiovascular Exam: regular rate/rhythm, normal heart sounds, normal peripheral pulses Gastrointestinal/Abdomen Exam: soft, normal bowel sounds, tenderness, guarding (Mild diffuse mild diffuse), No rebound Pelvic Exam: not done Rectal Exam: not done Back Exam: normal inspection, normal range of motion, No CVA tenderness, No vertebral tenderness Extremity Exam: normal inspection, normal range of motion, pelvis stable Neurologic Exam: alert, oriented x 3, cooperative, unishear operator II-XII nml as tested, normal mood/affect, nml cerebellar function, nml station & gait, sensation nml Skin Exam: normal color, warm, dry Lymphatic Exam: No adenopathy SpO2 Interpretation: normal O2 Delivery: Room Air - Course Nursing assessment & vital signs reviewed: Yes Ordered Tests: Active Orders 24 hr Category Date Time Status IV Insertion STAT Care 04/13/23 12:00 Active ABDOMEN AND PELVIS W/0 CONTRAS [CT] Stat Exams 04/13/23 12:00 Completed AMYLASE Stat Lab 04/13/23 12:31 Completed CBC W DIFF Stat Lab 04/13/23 12:31 Completed CMP Stat Lab 04/13/23 12:31 Completed LIPASE Stat Lab 04/13/23 12:31 Completed Lactic Acid Stat Lab 04/13/23 12:00 Completed UA W/RFX UR CULTURE Stat Lab 04/13/23 13:59 Completed Medication Summary Discontinued Medications Generic Name Dose Route Start Last Admin Trade Name Freq PRN Reason Stop Dose Admin Sodium Chloride 1,000 mls @ 999 mls/hr 04/13/23 12:00 04/13/23 13:16 Sodium Chloride 0.9% 1000 Ml IV 04/13/23 13:00 Infused .Q1H1M STA Infusion Sodium Chloride Confirm 04/13/23 12:05 Sodium Chloride 0.9% 1000 Ml Administered 04/13/23 12:06 Dose 1,000 mls @ ud .ROUTE .STK-MED ONE Sodium Chloride 1,000 mls @ 999 mls/hr 04/13/23 13:04 04/13/23 13:16 Sodium Chloride 0.9% 1000 Ml IV 04/13/23 14:04 999 mls/hr .Q1H1M STA Administration Sodium Chloride Confirm 04/13/23 13:16 Sodium Chloride 0.9% 1000 Ml Administered 04/13/23 13:17 Dose 1,000 mls @ ud .ROUTE .STK-MED ONE Ondansetron HCl 4 mg 04/13/23 12:00 04/13/23 12:08 Ondansetron Hcl 4 Mg/2 Ml Vial IV 04/13/23 12:01 4 mg STAT ONE Administration Ondansetron HCl Confirm 04/13/23 12:05 Ondansetron Hcl 4 Mg/2 Ml Vial Administered 04/13/23 12:06 Dose 4 mg .ROUTE .STK-MED ONE Pantoprazole Sodium 40 mg 04/13/23 12:00 04/13/23 12:08 Pantoprazole 40 Mg Vial IV 04/13/23 12:01 40 mg STAT ONE Administration Pantoprazole Sodium Confirm 04/13/23 12:05 Pantoprazole 40 Mg Vial Administered 04/13/23 12:06 Dose 40 mg IV .[facility]-MED ONE Lab/Rad Data: Laboratory Result Diagrams 04/13/23 12:31 04/13/23 12:31 Laboratory Results 04/13/23 04/13/23 04/13/23 Range/Units 13:59 12:31 12:31 WBC 4.7 (4.0-10.5) x10^3/uL RBC 4.49 (4.1-5.4) x10^6/uL Hgb 12.5 (12.0-16.0) g/dL Hct 40.0 (35-47) % MCV 89.1 (78-100) fL MCH 27.8 (26-32) pg MCHC 31.3 L (32-36) g/dL RDW 13.0 (11.5-14.0) % Plt Count 189 (150-450) x10^3/uL MPV 10.9 (7.5-11.0) fL Gran % 72.5 H (36.0-66.0) % Immature Gran % (Auto) 0.2 (0.00-0.4) % Nucleat RBC Rel Count 0.0 (0.00-0.1) % Eos # (Auto) 0.21 (0-0.5) x10^3/uL Immature Gran # (Auto) 0.01 (0.00-0.03) x10^3u/L Absolute Lymphs (auto) 0.74 L (1.0-4.6) x10^3/uL Absolute Monos (auto) 0.31 (0.0-1.3) x10^3/uL Absolute Nucleated RBC 0.00 (0.00-0.01) x10^3u/L Lymphocytes % 15.8 L (24.0-44.0) % Monocytes % 6.6 (0.0-12.0) % Eosinophils % 4.5 (0.00-5.0) % Basophils % 0.4 (0.0-0.4) % Absolute Granulocytes 3.40 (1.4-6.9) x10^3/uL Basophils # 0.02 (0-0.4) x10^3/uL Sodium 138 (137-145) mmol/L Potassium 3.6 (3.5-5.1) mmol/L Chloride 102 (98-107) mmol/L Carbon Dioxide 29 (22-30) mmol/L Anion Gap 10.5 (5-15) MEQ/L BUN 22 H (7-17) mg/dL Creatinine 0.74 (0.52-1.04) mg/dL Estimated GFR > 60.0 ML/MIN Glucose 106 (74-106) mg/dL Lactic Acid (0.4-2.0) Calcium 8.5 (8.4-10.2) mg/dL Total Bilirubin 0.50 (0.2-1.3) mg/dL AST 17 (14-36) U/L ALT 14 (0-35) U/L Alkaline Phosphatase 86 (38-126) U/L Serum Total Protein 6.8 (6.3-8.2) g/dL Albumin 3.8 (3.5-5.0) g/dL Amylase 57 (30-110) U/L Lipase 65 (23-300) U/L Urine Color Yellow (Yellow) Urine Appearance Clear (Clear) Urine pH 6.0 (4.6-8.0) Ur Specific Pfeifer 1.020 (1.005-1.030) Urine Protein Negative (Negative) Urine Glucose (UA) Negative (Negative) mg/dL Urine Ketones Negative (Negative) Urine Blood Trace (Negative) Urine Nitrite Negative (Negative) Urine Bilirubin Negative (Negative) Urine Urobilinogen 1.0 A (0.2) mg/dL Ur Leukocyte Esterase Negative (Negative) U Hyaline Cast (Auto) NONE SEEN (0-2) /LPF Urine Microscopic RBC 0-2 (0-5) /HPF Urine Microscopic WBC 0-2 (0-5) /HPF Ur Epithelial Cells Rare (None Seen) /HPF Urine Bacteria None Seen (None Seen) /HPF Urine Culture Reflexed NO (NO) Influenza Type A Ag (NEGATIVE) Influenza Type B Ag (NEGATIVE) RSV (PCR) (NEGATIVE) SARS-CoV-2 (PCR) (NEGATIVE) 04/13/23 04/13/23 Range/Units 12:10 12:00 WBC (4.0-10.5) x10^3/uL RBC (4.1-5.4) x10^6/uL Hgb (12.0-16.0) g/dL Hct (35-47) % MCV (78-100) fL MCH (26-32) pg MCHC (32-36) g/dL RDW (11.5-14.0) % Plt Count (150-450) x10^3/uL MPV (7.5-11.0) fL Gran % (36.0-66.0) % Immature Gran % (Auto) (0.00-0.4) % Nucleat RBC Rel Count (0.00-0.1) % Eos # (Auto) (0-0.5) x10^3/uL Immature Gran # (Auto) (0.00-0.03) x10^3u/L Absolute Lymphs (auto) (1.0-4.6) x10^3/uL Absolute Monos (auto) (0.0-1.3) x10^3/uL Absolute Nucleated RBC (0.00-0.01) x10^3u/L Lymphocytes % (24.0-44.0) % Monocytes % (0.0-12.0) % Eosinophils % (0.00-5.0) % Basophils % (0.0-0.4) % Absolute Granulocytes (1.4-6.9) x10^3/uL Basophils # (0-0.4) x10^3/uL Sodium (137-145) mmol/L Potassium (3.5-5.1) mmol/L Chloride (98-107) mmol/L Carbon Dioxide (22-30) mmol/L Anion Gap (5-15) MEQ/L BUN (7-17) mg/dL Creatinine (0.52-1.04) mg/dL Estimated GFR ML/MIN Glucose (74-106) mg/dL Lactic Acid 1.6 (0.4-2.0) Calcium (8.4-10.2) mg/dL Total Bilirubin (0.2-1.3) mg/dL AST (14-36) U/L ALT (0-35) U/L Alkaline Phosphatase (38-126) U/L Serum Total Protein (6.3-8.2) g/dL Albumin (3.5-5.0) g/dL Amylase (30-110) U/L Lipase (23-300) U/L Urine Color (Yellow) Urine Appearance (Clear) Urine pH (4.6-8.0) Ur Specific Pfeifer (1.005-1.030) Urine Protein (Negative) Urine Glucose (UA) (Negative) mg/dL Urine Ketones (Negative) Urine Blood (Negative) Urine Nitrite (Negative) Urine Bilirubin (Negative) Urine Urobilinogen (0.2) mg/dL Ur Leukocyte Esterase (Negative) U Hyaline Cast (Auto) (0-2) /LPF Urine Microscopic RBC (0-5) /HPF Urine Microscopic WBC (0-5) /HPF Ur Epithelial Cells (None Seen) /HPF Urine Bacteria (None Seen) /HPF Urine Culture Reflexed (NO) Influenza Type A Ag NEGATIVE (NEGATIVE) Influenza Type B Ag NEGATIVE (NEGATIVE) RSV (PCR) NEGATIVE (NEGATIVE) SARS-CoV-2 (PCR) NEGATIVE (NEGATIVE) - Progress Progress: improved, re-examined Progress Note: 04/13/23 13:31 CAT scan of the abdomen pelvis without contrast was interpreted by the radiologist and I reviewed his impression. There were is stable colonic diverticulosis without diverticulitis. There is no evidence of any acute intra- abdominal or intrapelvic abnormalities. This patient's medical issue is 1 of moderate complexity. The level of complexity and the work-up performed was based on review of the patient's past medical history, review of the patient's medication list, review of the patient's drug allergy list, history of present illness and findings on physical examination. The work-up includes obtaining viral swabs, urinalysis, CBC, CMP, amylase, lipase, lactic acid level and a CAT scan of the abdomen pelvis. We provided the patient with an intravenous line and infused normal saline solution as well as provide the patient with Zofran intravenously as an antiemetic. We also infuse Protonix 40 mg intravenously. I reviewed the results of the above-stated work-up. Patient does not have any acute, emergent intra-abdominal abnormality. The patient likely has a viral syndrome. We will check her urinalysis when she provides us with a urine sample. I am infusing a second liter of intravenous normal saline. If the work-up continues to be negative, we will send the patient home with a prescription for Zofran and instructions to drink a clear liquid diet for 12 to 16 hours before advancing her diet. She can follow-up with her primary care provider for further evaluation management. If the urinalysis shows a urinary tract infection we will provide her with a dose of antibiotics here in the emergency department and send a prescription in re motely to her pharmacy for more antibiotics if indicated. 04/13/23 14:17 Patient was reexamined. Patient's vital signs are stable. Patient states that she feels much better now. She already has a new prescription for Zofran. Patient be discharged home with instructions for clear liquid diet and advance her diet as tolerated. Counseled pt/family regarding: lab results, diagnosis, need for follow-up, rad results Medical Desision Making - Diagnostic Testing Diagnostic test were ordered, analyzed, and reviewed by me: Yes Radiological Interpretation: Reviewed by me, Teleradiologist Report - Risk of complications Minimal Risk: Minimal risk of morbidity - Departure Departure Disposition: Home Clinical Impression: Vomiting and diarrhea, Diverticulosis Condition: Stable Critical Care Time: No Referrals: NICOLA DERAS [Primary Care Provider] - Follow up/PCP as directed Additional Instructions: Drink plenty of clear liquids as discussed. Advance your diet slowly. Follow- up with your primary prescribing provider for further evaluation management.
[2023-04-13] MEDS ORDERED: PROTONIX 40 MG IV IV ONE ×2 (12:00→12:05)
[2023-04-13] MEDS ORDERED: Sodium Chloride 0.9% 1000 ML 1,000 ML IV STA ×2 (12:00→13:04)
[2023-04-13] MEDS ORDERED: Zofran 4 MG/2 ML VIAL IV ONE (12:00)
[2023-04-13] MEDS ORDERED: Zofran 4 MG/2 ML VIAL ONE (12:05)
[2023-04-13] MEDS ORDERED: Sodium Chloride 0.9% 1000 ML 1,000 ML ONE ×2 (12:05→13:16)
[2023-04-13 12:38] LABS: BASOPHIL % 0.4 % (0.0-0.4); Basophil (Absolute #) 0.02 x10^3/uL (0-0.4); Eosinophil % 4.5 % (0.00-5.0); Eosinophil (Absolute #) 0.21 x10^3/uL (0-0.5); Hemoglobin 12.5 g/dL (12.0-16.0); IMMATURE GRAN # 0.01 x10^3u/L (0.00-0.03); IMMATURE GRAN % 0.2 % (0.00-0.4); Lymphocyte (Absolute #) 0.74 x10^3/uL (1.0-4.6); Lymphocytes % 15.8 % (24.0-44.0); Mean Cell Volume 89.1 fL (78-100); Mean Corpuscular Hemoglobin 27.8 pg (26-32); Mean Corpuscular Hgb Concent. 31.3 g/dL (32-36); Mean Platelet Volume 10.9 fL (7.5-11.0); Monocyte (Absolute #) 0.31 x10^3/uL (0.0-1.3); Monocytes % 6.6 % (0.0-12.0); Neutrophil % 72.5 % (36.0-66.0); Platelet Count 189 x10^3/uL (150-450); Red Blood Count 4.49 x10^6/uL (4.1-5.4); White Blood Count 4.7 x10^3/uL (4.0-10.5)
[2023-04-13 12:52] LABS: INFLUENZA A NEGATIVE (NEGATIVE); INFLUENZA B NEGATIVE (NEGATIVE); RESPIRATORY SYNCTIAL VIRUS NEGATIVE (NEGATIVE); SARS-CoV-2 Xpert Express NEGATIVE (NEGATIVE)
[2023-04-13 12:52] LABS: ALBUMIN 3.8 g/dL (3.5-5.0); ALKALINE PHOSPHATASE 86 U/L (38-126); AMYLASE 57 U/L (30-110); ANION GAP 10.5 MEQ/L (5-15); BLOOD UREA NITROGEN 22 mg/dL (7-17); CHLORIDE 102 mmol/L (98-107); Calcium 8.5 mg/dL (8.4-10.2); Carbon Dioxide 29 mmol/L (22-30); Creatinine 1 0.74 mg/dL (0.52-1.04); EST GLOMERULAR FILTRATION RATE > 60.0 ML/MIN; Glucose 106 mg/dL (74-106); LIPASE 65 U/L (23-300); Potassium 3.6 mmol/L (3.5-5.1); SGOT/AST 17 U/L (14-36); SGPT/ALT 14 U/L (0-35); SODIUM 138 mmol/L (137-145); Total Protein 6.8 g/dL (6.3-8.2)
--- NOTE | 2023-04-13 12:54 | XRAY ---
Indication: Abdomen pain, nausea, vomiting, diarrhea. Multiple contiguous axial images obtained through the abdomen and pelvis without contrast. Comparison: March 14, 2022 Lung bases remain clear. Heart is not enlarged. Noncontrasted stomach and bowel loops are nonobstructed. Appendix not visualized. Again minimal descending colonic diverticulosis, 19.5 cm fatty hepatomegaly, cholecystectomy, and hysterectomy. No free fluid/air. Remaining liver, pancreas, spleen, adrenal glands, kidneys, ureters, bladder, and aorta are unremarkable for noncontrast exam. Osseous structures intact again with L5-S1 degenerative disc disease. Impression: Stable colonic diverticulosis, fatty hepatomegaly, and L5-S1 degenerative disc disease. No new/acute abnormalities on this noncontrast exam..
[2023-04-13 14:10] LABS: Appearance Clear (Clear); Bacteria None Seen /HPF (None Seen); Bilirubin Negative (Negative); Blood Trace (Negative); Epithelial Cells Rare /HPF (None Seen); Glucose, Urine Negative (Negative); Hyaline Casts NONE SEEN /LPF (0-2); Ketones Negative (Negative); Leukocyte Esterase Negative (Negative); Nitrite Negative (Negative); Protein,Urine Dip Negative (Negative); RBC 0-2 /HPF (0-5); WBC 0-2 /HPF (0-5)
[2023-04-13 14:11] LABS: ADD URINE CULTURE? NO (NO)
[2023-04-13 14:12] VITALS: BP 129/72
[2023-04-13 14:32] VITALS: PULSE 75; O2SAT 99
== END 2023-04-13 14:36 | disposition home or self-care (01) ==
LOC: ED 11:32
DX: K57.30 Diverticulosis of large intestine without perforation or abscess without bleeding (principal); R11.2 Nausea with vomiting, unspecified; R19.7 Diarrhea, unspecified; M79.10 Myalgia, unspecified site; I10 Essential (primary) hypertension; Z79.899 Other long term (current) drug therapy
CPT/HCPCS: 0241U; 36000; 36415; 74176; 80053; 81001; 82150; 83605; 83690; 85025; 96360; 96361; 96374; 96375; 99284; J2405